=== PATIENT | female | born 1995 | race Caucasian/White ===

== ENCOUNTER 2017-05-13 20:20 | Emergency (ER) | payer OTHER ==
[~2017-05-13] VITALS: Ht 172.7 cm; Wt 61.2 kg
[~2017-05-13 20:20] MED LIST: ORTHO TRI-CYCL1 EAC1 PO; ULTRAM50 MG PO
[2017-05-13] MEDS ORDERED: NORCO 5-325 TA1 EACH PO (22:51)
[2017-05-13] MEDS ORDERED: KEFLEX500 MG PO (22:52)
== END 2017-05-13 23:40 | disposition home or self-care (01) ==
LOC: ED 20:20
DX: S81.021A Laceration with foreign body, right knee, initial encounter (principal); S70.211A Abrasion, right hip, initial encounter; S50.311A Abrasion of right elbow, initial encounter; S60.512A Abrasion of left hand, initial encounter; S60.511A Abrasion of right hand, initial encounter; M85.611 Other cyst of bone, right shoulder; Z79.899 Other long term (current) drug therapy; W22.8XXA Striking against or struck by other objects, initial encounter; Y93.51 Activity, roller skating (inline) and skateboarding
CPT/HCPCS: 73030; 73560; 74177; 80053; 84703; 85025; 90471; 90715; 96374; 96375; 99284; J1170; J2405; Q9967

== ENCOUNTER 2017-05-23 08:35 | Day surgery (SDC) | payer OTHER ==
[~2017-05-23] VITALS: Ht 172.7 cm; Wt 61.2 kg
[~2017-05-23 08:35] MED LIST changes: +KEFLEX500 MG PO; +NORCO 5-325 TA1 EACH PO
[2017-05-23] MEDS ORDERED: HYDROCODON-ACE1 EA11 PO (13:03)
--- NOTE | 2017-05-23 13:29 | NUR ---
05/23/17 1329 Jessica Viramontes 1303 - PT ARRIVED TO RECOVERY. MAINTAINING OWN AIRWAY. RESPONDS TO STIMULI
--- NOTE | 2017-05-23 14:31 | NUR ---
IGNACIO 1415: PT BROUGHT BACK TO DS FROM PACU. PT IS TEARFUL. PT'S MOM IS BROUGHT TO NEW ROOM. PT'S MOM UPDATED ON PT'S CONDITION OF FALLING ASLEEP AND GOING APNEIC. PT IS NOT ABLE TO FULLY COMMUNICATE WITH NURSING STUFF. PT STARTS TO REPORT BEING PAINFUL.
--- NOTE | 2017-05-23 15:18 | NUR ---
PT IS MORE AWAKE, SHE IS NO LONGER TEARFUL. SHE IS REQUESTING TO GET UP AND USE THE RESTROOM. SHE TRIES TO TAKE A STEP ON HER RIGHT LEG WITHOUT CRUTCHES AND BEGINS TO CRY. CRUTCHES ARE COLLECTED AND SHE IS ABLE TO AMBULATE HERSELF TO THE BATHROOM. SHE DRAGS HER RIGHT LEG BEHIND HER, PT IS ENCOURAGED TO TRY AND SLIGHTLY BEND HER RIGHT LEG WHEN WALKING WITH THE CRUTCHES. SHE REPORTS FEELING LIKE SHE HAS EMPTIED HER BLADDER AND SHE IS ABLE TO AMBULATE WITH CRUTCHES BACK TO HER ROOM. SHE STATES THAT SHE IS HUNGRY AND WOULD LIKE A SANDWICH WITH PROTEIN. PT IS HELPED BACK INTO BED AND VITALS ARE TAKEN. PT IS RATING HER PAIN A 2 OUT OF 10.
[2017-05-23] MEDS ORDERED: NORCO 7.5-3251 EACH PO (15:26)
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
== END 2017-05-23 16:25 | disposition home or self-care (01) ==
LOC: DS 08:35 → OPS 08:35 → DS 10:45 → OPS 10:45
PROVIDERS: Specialist
PROC: 0HCKXZZ Extirpation of Matter from Right Lower Leg Skin, External Approach (ICD-10-PCS; principal; 2017-05-23 10:45)
DX: S80.251A Superficial foreign body, right knee, initial encounter (principal); J45.909 Unspecified asthma, uncomplicated; M70.41 Prepatellar bursitis, right knee; M85.421 Solitary bone cyst, right humerus; D64.9 Anemia, unspecified; F32.9 Major depressive disorder, single episode, unspecified; Z91.040 Latex allergy status; Z98.890 Other specified postprocedural states
CPT/HCPCS: 01320; 62322; 64450; 73560; 76942; J0690; J1100; J1885; J2250; J2405; J2704; J2795; J3010; J7120

== ENCOUNTER 2018-05-08 14:21 | Emergency (ER) | payer OTHER ==
[~2018-05-08] VITALS: Ht 172.7 cm; Wt 61.2 kg
[~2018-05-08 14:21] MED LIST changes: +HYDROCODON-ACE1 EA11 PO; +NORCO 7.5-3251 EACH PO
[2018-05-08] MEDS ORDERED: ST. JOHN'S WOR300 M1 PO (14:55)
[2018-05-08] MEDS ORDERED: ATIVAN0.5 MG PO (18:54)
== END 2018-05-08 19:14 | disposition home or self-care (01) ==
LOC: ED 14:21
DX: R45.851 Suicidal ideations (principal); F32.9 Major depressive disorder, single episode, unspecified; Z88.4 Allergy status to anesthetic agent; Z91.040 Latex allergy status; Z88.8 Allergy status to other drugs, medicaments and biological substances; Z79.899 Other long term (current) drug therapy
CPT/HCPCS: 80053; 80176; 81001; 84703; 85025; 99284; G0480